=== PATIENT | male | born 1970 | race American Indian/Alaskan Native ===

== ENCOUNTER 2019-09-01 11:47 | Emergency (ER) | payer SELFPAY ==
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
[2019-09-01 12:29] VITALS: BP 191/109
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
== END 2019-09-01 15:07 | disposition home or self-care (01) ==
LOC: ED 11:47
DX: S80.02XA Contusion of left knee, initial encounter (principal); I10 Essential (primary) hypertension; V49.49XA Driver injured in collision with other motor vehicles in traffic accident, initial encounter; Y93.89 Activity, other specified; Y92.488 Other paved roadways as the place of occurrence of the external cause; Y99.8 Other external cause status
CPT/HCPCS: 99283